=== PATIENT | female | born 1980 | race Two or more races ===

== ENCOUNTER 2023-09-04 11:39 | Emergency (ER) | payer OTHER ==
[~2023-09-04 11:39] MED LIST: Iopamidol-370 76% 500 ML MDV (1 ML CHARGE) ONE
[2023-09-04 12:29] LABS: #Basophils Less than 0.03 10x3/uL (0.0-0.2); %Basophils 0.4 % (0.0-1.0); %Eosinophils 0.7 % (0.0-10.0); %Lymphocytes 37.3 % (21.0-51.0); %Monocytes 7.2 % (0.0-10.0); Hematocrit 34.8 % (36.0-47.0); Hemoglobin 11.5 g/dL (12.0-16.0); Mean Corpuscular Hemoglobin 30.3 pg (27.0-31.0); Mean Corpuscular Volume 91.6 fL (78.0-98.0); Platelet Count 461 10x3/uL (130-400); RBC Distribution Width 11.8 % (11.5-14.5)
[2023-09-04 12:42] LABS: PTT 27.4 sec (22.9-36.1); Prothrombin Time 13.2 sec (12.0-14.7)
[2023-09-04 12:46] LABS: ALT (SGPT) Less than 5 U/L (8-55); AST (SGOT) 14 U/L (5-34); Albumin 3.5 g/dL (3.5-5.0); Alkaline Phosphatase 78 U/L (40-110); Anion Gap 20 mmol/L (10-20); BUN (Urea Nitrogen) 17 mg/dL (7.0-18.7); Bilirubin, Total 0.5 mg/dL (0.2-1.2); Calc. Creatinine Clearance 0 mL/min (70-130); Calcium 9.9 mg/dL (7.8-10.44); Carbon Dioxide 20 mmol/L (22-29); Chloride 99 mmol/L (98-107); Estimated GFR 54; Globulin 4.3 g/dL (2.4-3.5); Glucose 107 mg/dL (70-105); Lipase 26 U/L (8-78); Potassium 3.9 mmol/L (3.5-5.1); Protein, Total 7.8 g/dL (6.0-8.3); Sodium 135 mmol/L (136-145)
[2023-09-04 12:50] LABS: Troponin I Less than 0.010 ng/mL (< 0.028)
== END 2023-09-04 14:23 | disposition home or self-care (01) ==
LOC: ERS 11:39
DX: K56.609 Unspecified intestinal obstruction, unspecified as to partial versus complete obstruction (principal); E11.9 Type 2 diabetes mellitus without complications; I10 Essential (primary) hypertension
CPT/HCPCS: 70450; 71045; 74177; 80053; 83690; 83880; 84443; 84484; 85025; 85610; 85730; 93005; 96360